=== PATIENT | female | born 1955 | race Caucasian/White ===

== ENCOUNTER 2020-10-19 06:14 | Day surgery (SDC) | payer MEDICARE ==
[2020-10-16 12:45] VITALS: BMI 25.7
[2020-10-19] MEDS ORDERED: Ketamine 50 MG/ML (10ML VIAL) ONE (06:41)
[2020-10-19] MEDS ORDERED: EPINEPHrine 1 MG/ML AMP ONE ×2 (06:43→08:42)
[2020-10-19] MEDS ORDERED: Midazolam HCl 2 mg/2 ml Vial ONE ×2 (06:44)
[2020-10-19] MEDS ORDERED: Dexamethasone 20 MG/5 ML VIAL ONE (06:44)
[2020-10-19] MEDS ORDERED: Lidocaine 1% PF 5 ML VIAL ONE (06:44)
[2020-10-19] MEDS ORDERED: Glycopyrrolate 0.2 MG/ML 5 ML SYRINGE ONE (06:44)
[2020-10-19] MEDS ORDERED: PROPOFOL 60 ML ONE (06:44)
[2020-10-19] MEDS ORDERED: Fentanyl 100 MCG/2 ML VIAL ONE ×2 (06:44→10:05)
[2020-10-19] MEDS ORDERED: Ondansetron PF 4 MG/2 ML Vial ONE (06:44)
[2020-10-19] MEDS ORDERED: Lidocaine 1% MPF 2 ML VIAL ONE (07:25)
[2020-10-19] MEDS ORDERED: Oxymetazoline HCl 0.05% ( 15 ML ) ONE (09:02)
== END 2020-10-19 11:20 | disposition home or self-care (01) ==
LOC: CSHSDC 06:14
PROVIDERS: ATTEND Otolaryngology Plastic Surgery within the Head & Neck
PROC: 0CBR8ZZ Excision of Epiglottis, Via Natural or Artificial Opening Endoscopic (ICD-10-PCS; principal; 2020-10-19)
PROC: 0CBR8ZX Excision of Epiglottis, Via Natural or Artificial Opening Endoscopic, Diagnostic (ICD-10-PCS; 2020-10-19)
DX: J38.1 Polyp of vocal cord and larynx (principal); J38.2 Nodules of vocal cords; R49.0 Dysphonia
CPT/HCPCS: 88305; J0171; J1100; J2250; J2405; J2704; J3010; J7620

== ENCOUNTER 2023-04-15 15:24 | Emergency (ER) | payer OTHER ==
[2023-04-15 16:27] LABS: #Basophils 0.1 10x3/uL (0.0-0.2); #Eosinphils 0.2 10x3/uL (0.0-0.5); #Monocytes 0.7 10x3/uL (0.0-1.1); #Neutrophils 5.4 10x3/uL (1.5-8.4); %Basophils 0.7 % (0.0-2.0); %Eosinophils 2.2 % (0.0-6.0); %Lymphocytes 5.5 % (18.0-47.0); Hematocrit 42.7 % (34.9-44.5); Mean Corpuscular HGB CONC 35.1 g/dL (32.0-36.0); Mean Corpuscular Hemoglobin 32.5 pg (27.0-33.0); Mean Corpuscular Volume 92.6 fl (81.6-98.3); Mean Platelet Volume 8.7 fl (7.4-10.4); Platelet Count 189 10x3/uL (150-450); RBC Distribution Width 11.6 % (11.5-14.5); Red Blood Cell (RBC) Count 4.61 10x6/uL (3.90-5.03); White Blood Cell (WBC) Count 6.8 10x3/uL (3.5-10.5)
[2023-04-15 16:40] LABS: ALT (SGPT) 30 U/L (8-55); AST (SGOT) 41 U/L (5-34); Albumin 4.2 g/dL (3.4-4.8); Alkaline Phosphatase 62 U/L (40-110); Anion Gap 16 mmol/L (10-20); BUN (Urea Nitrogen) 11 mg/dL (9.8-20.1); Bilirubin, Total 0.7 mg/dL (0.2-1.2); Calc. Creatinine Clearance 0 mL/min (70-130); Calcium 8.4 mg/dL (7.8-10.44); Carbon Dioxide 17 mmol/L (23-31); Chloride 106 mmol/L (98-107); Estimated GFR 75; Globulin 2.4 g/dL (2.4-3.5); Glucose 99 mg/dL (80-115); Lipase 14 U/L (8-78); Potassium 3.9 mmol/L (3.5-5.1); Protein, Total 6.6 g/dL (5.8-8.1); Sodium 135 mmol/L (136-145)
[2023-04-15 16:42] LABS: Troponin I Less than 0.010 ng/mL (< 0.028)
[2023-04-15 16:44] LABS: Bilirubin Neg (Negative); Blood, Urine 10 (Negative); Clarity Clear (Clear); Glucose, Urine (Dipstick) Normal (Negative); Ketone, Urine Negative (Negative); Leukocyte Negative (Negative); Nitrite Negative (Negative); Protein, Urine (Dipstick) Negative (Neg-Trace); Specific Gravity, Urine 1.015 (1.005-1.030); Urobilinogen Normal mg/dL (Less than 2)
[2023-04-15 17:02] LABS: SARS-CoV-2 NAA Rapid Test DETECTED (NotDetected)
[2023-04-15 17:08] LABS: Bacteria/HPF 1+ HPF (None Seen); CAUTI Indications for Culture Alt mental st,lethar; RBC/HPF 0-3 HPF (0-3); WBC/HPF 0-3 HPF (0-3)
[2023-04-15 17:09] LABS: Urine Culture Reflex No No
== END 2023-04-15 17:18 | disposition home or self-care (01) ==
LOC: CSHERS 15:24
DX: U07.1 COVID-19 (principal); F17.210 Nicotine dependence, cigarettes, uncomplicated
CPT/HCPCS: 71045; 80053; 81001; 83690; 84484; 85025; 87804 ×2; 93005; 99285; U0002; 36415